=== PATIENT | male | born 1965 | race African-American/Black ===

== ENCOUNTER 2017-11-25 11:17 | Emergency (ER) | payer MEDICAID, OTHER ==
[~2017-11-25] VITALS: Ht 172.7 cm; Wt 104.3 kg
[2017-11-25] MEDS ORDERED: HYDROcodone-ACET 10/325MG TAB PO ONE (14:00)
[2017-11-25] MEDS ORDERED: LIDOCAINE 1% HCL (LOCAL ANESTH.) INJ 20ML MDV IJ ONE (14:00)
[2017-11-25] MEDS ORDERED: cefTRIAXone SOD 1,000 MG VL IM ONE (14:00)
[2017-11-25] MEDS ORDERED: LET TOPICAL SOLN 5 ML TOP ONE (14:00)
[2017-11-25] MEDS ORDERED: TETANUS-DIPTH-ACEL PERTUSSIS 0.5ML SYRG IM ONE (14:00)
[2017-11-25] MEDS ORDERED: LIDOCAINE 1% (LOCAL ANESTH.) PF 5ml SDV ID ONE (14:00)
[2017-11-25 14:40] VITALS: BP 132/86
[2017-11-25] MEDS ORDERED: BACITRACIN TOP OINT 1 UD PKG TOP ONE (15:00)
== END 2017-11-25 15:19 | disposition home or self-care (01) ==
LOC: ER 11:20
DX: S92.515A Nondisplaced fracture of proximal phalanx of left lesser toe(s), initial encounter for closed fracture (principal); W22.8XXA Striking against or struck by other objects, initial encounter; Y93.89 Activity, other specified; Y99.8 Other external cause status; Y92.89 Other specified places as the place of occurrence of the external cause
CPT/HCPCS: 12001; 73630; 90471; 90715; 96372; 99284; J0696; J2001; J3490; L3260